=== PATIENT | female | born 1985 | race Caucasian/White ===

== ENCOUNTER 2017-01-17 19:18 | Emergency (ER) | payer OTHER ==
[~2017-01-17] VITALS: Ht 170.2 cm; Wt 81.5 kg
[~2017-01-17 19:18] MED LIST: DAILY VITAMIN1 EAC4 PO; DILAUDID2 MG PO; DOXYCYCLINE HY100 MG PO; EFFEXOR75 MG PO; EXTRA STRENGTH500 M1 PO; HYDROCODON-ACE1 EAC7 PO; LEVO-T112 MCG PO; MEDROL DOSEPAK4 MG PO; NORCO 5/3251 TABLET PO; PHENERGAN12.5 MG PR; PROMETHAZINE HC25 M1 PO; STOOL SOFTENER100 MG PO; TUMS DUAL ACTI1 EACH PO; ULTRAM50 MG PO; VENTOLIN HFA18 GM IH; ZOFRAN ODT4 MG PO
[2017-01-17 19:47] LABS: HEMATOCRIT 44.2 % (36.0-46.0); MCH 28.8 PG (29.0-34.0); MCHC 32.8 G/DL (30.0-36.0); MCV 87.9 FL (83-99); MEAN PLAT.VOLUME 9.5 uM^3 (9.5-12.4); PLATELET COUNT 393 K/uL (156-360); RBC DIS.WIDTH-CV 13.4 % (11.8-14.6); RBC DIS.WIDTH-SD 41.9 % (39-53); RED BLOOD COUNT 5.03 M/uL (3.80-5.20); WHITE BLOOD COUNT 17.2 K/uL (4.1-10.2)
[2017-01-17 19:56] LABS: CHLORIDE 105 mEq/L (99-109); POTASSIUM 3.8 mEq/L (3.7-5.4); SODIUM 140 mEq/L (136-147)
[2017-01-17 19:57] LABS: GLUCOSE 154 mg/dL (70-99)
[2017-01-17 19:59] LABS: ANION GAP 10 MEQ/L (2-14)
[2017-01-17 20:01] LABS: GFR ESTIMATE (CALCULATED) > 59 mL/min/
[2017-01-17 20:02] LABS: UREA NITROGEN (BUN) 19 mg/dL (9-23)
[2017-01-17 20:08] LABS: TROP-I INTERPRETATION NEGATIVE; TROPONIN-I < 0.01 ng/mL (0.0-0.30)
[2017-01-17 20:37] LABS: EOSINOPHIL (%) 0.1 % (0-5); IMMATURE GRANULOCYTE (%) 1.3 % (0.0-0.7); IMMATURE GRANULOCYTE COUNT 2.2 K/uL; LYMPHOCYTE COUNT 1.4 K/uL (1.0-2.8); MONOCYTE (%) 5.4 % (3-12); MONOCYTE COUNT 0.9 K/uL (0-0.8); NEUTROPHIL (%) 84.7 % (45-76); NEUTROPHIL COUNT 14.5 K/uL (1.8-6.4)
[2017-01-17 20:45] LABS: D-DIMER ELISA 0.35 mg/L FEU (< 0.57)
[2017-01-17] MEDS ORDERED: ATIVAN0.5 MG PO (21:19)
[2017-01-17] MEDS ORDERED: LOPRESSOR25 MG PO (21:19)
[2017-01-17 22:00] VITALS: BP 131/82
== END 2017-01-17 22:29 | disposition home or self-care (01) ==
LOC: EME 19:18
DX: R00.2 Palpitations (principal); E89.0 Postprocedural hypothyroidism; Z85.850 Personal history of malignant neoplasm of thyroid
CPT/HCPCS: 71020; 80048; 84439; 84443; 84484; 85025; 85027; 85379; 93005; 99281; 99285; J2060; J7030